=== PATIENT | male | born 1965 | race Caucasian/White ===

== ENCOUNTER 2019-09-03 01:02 | Emergency (ER) | payer OTHER, SELFPAY ==
[2019-09-03 01:05] VITALS: BP 120/80; PULSE 82; RESP 15; TEMP 36.9; O2SAT 98; BMI 27.4
[2019-09-03 01:32] LABS: Add Manual Diff / Slide Review NO; Basophils Absolute Auto 100 /uL (0-100); Basophils Percent Auto 0.7 % (0-2); Eosinophils Absolute Auto 1300 /uL (0-450); Eosinophils Percent Auto 10.3 % (2-4); Hematocrit 43.3 % (41-53); Lymphocytes Absolute Auto 5400 /uL (1100-4500); Lymphocytes Percent Auto 43.9 % (25-40); Mean Corpuscular HGB Conc 34.6 % (30-36); Mean Corpuscular Volume 89.7 fL (80-100); Monocytes Absolute Auto 1000 /uL (0-900); Monocytes Percent Auto 7.9 % (3-14); Neutrophils Absolute Auto 4600 /uL (1500-7000); Neutrophils Percent Auto 37.2 % (50-75); Platelet Count 275 X10^3/uL (150-400); Red Blood Cell Count 4.82 X10^6/uL (4.5-5.9); Red Cell Distribution Width 14.3 % (11.6-14.8); White Blood Cell Count 12.4 X10^3/uL (4.5-11.0)
--- NOTE | 2019-09-03 01:37 | ED_ITS ---
HPI - General Adult General Chief complaint: Syncope Stated complaint: Syncope Time Seen by Provider: 09/03/19 01:20 History of Present Illness HPI narrative: 54-year-old gentleman with no significant medical issues in on no medications states that he has recently moved to the area to help his aging mother. [place] had a couple of drinks along with probably a couple of puffs of marijuana neither of which are standard procedures for him. Apparently he stood up and had a witnessed syncopal episode where he slumped to the floor. He did not hit his head and is not complaining if any acute musculoskeletal pain or injury. He was noted to be relatively hypotensive with the medics 1st arrived and without fluid he has recovered nicely. He has no complaints or concerns at this time. Review of Systems Review of Systems Narrative: Denies ? fever ? cough ? cold ? chills ? chest pain ? dyspnea ? orthopnea ? wheezing ? abdominal pain ? change to bowel or bladder habits ? nausea vomiting ? skin changes ? rashes Patient History Social History Smoking Status: Former smoker Exam Narrative Exam Narrative: General: Healthy appearing, in no acute distress. Amiable but smelling strongly of alcohol. Able to give a complete and coherent history. Well-nourished well-developed HEENT: Moist mucous membranes, normal sclera with reactive pupils, Neck: No JVD, supple Respiratory: Lungs are clear to auscultation, no wheezing no rales no rhonchi. Full and symmetrical air movement Cardiac: Regular rate and rhythm no murmurs no bruits Abdomen: Soft nontender good bowel tones, no flank pain Skin: Warm and dry, no rashes Neurologic: Grossly neurologically intact with no obvious asymmetries or abnormalities Extremities: No trauma, well perfused Psych: Cooperative, appropriate insight and affect Initial Vital Signs Initial Vital Signs: Vital Signs Temperature 98.5 F 09/03/19 01:05 Pulse Rate 82 09/03/19 01:05 Respiratory Rate 15 09/03/19 01:05 Blood Pressure 120/80 09/03/19 01:05 Pulse Oximetry 98 09/03/19 01:05 Course Orders Ordered: ED Orders 09/03/19 01:06 EKG-12 Lead Stat 09/03/19 01:23 Complete Blood Count AUTO DIFF Stat Comprehensive Metabolic Panel Stat Ethanol (ETOH) Stat Troponin & CK Cardiac Panel Stat Discontinued Medications Sodium Chloride (Normal Saline 0.9%) 1,000 mls @ 1,000 mls/hr IV BOLUS ONE Stop: 09/03/19 02:19 Last Admin: 09/03/19 02:31 Dose: 1,000 mls/hr Documented by: LOGAN Vital Signs Vital signs: Vital Signs - 8 hr 09/03/19 01:05 Temperature 98.5 F Pulse Rate 82 Respiratory Rate 15 Blood Pressure 120/80 Pulse Oximetry 98 Medical Decision Making Medical Records Medical records reviewed: Yes I reviewed the patient's medical records. Lab Data Result diagrams: 09/03/19 01:23 09/03/19 01:23 Labs: Lab Results 09/03/19 09/03/19 Range/Units 01:23 01:23 WBC 12.4 H (4.5-11.0) X10^3/uL RBC 4.82 (4.5-5.9) X10^6/uL Hgb 15.0 (13.5-17.5) g/dL Hct 43.3 (41-53) % MCV 89.7 (80-100) fL MCH 31.0 (26-34) PG MCHC 34.6 (30-36) % RDW 14.3 (11.6-14.8) % Plt Count 275 (150-400) X10^3/uL Neut % (Auto) 37.2 L (50-75) % Lymph % (Auto) 43.9 H (25-40) % Cannon % (Auto) 7.9 (3-14) % Eos % (Auto) 10.3 H (2-4) % Baso % (Auto) 0.7 (0-2) % Neut # (Auto) 4600 (5459-7962) /uL Lymph # (Auto) 5400 H (9821-2170) /uL Cannon # (Auto) 1000 H (0-900) /uL Eos # (Auto) 1300 H (0-450) /uL Baso # (Auto) 100 (0-100) /uL Sodium 143 (137-145) mmol/L Potassium 3.6 (3.4-5.1) mmol/L Chloride 104 (98-107) mmol/L Carbon Dioxide 23 (22-32) mmol/L BUN 14 (9-20) mg/dL Creatinine 1.20 (0.66-1.25) mg/dL Estimated GFR > 60.0 (>60) mL/min BUN/Creatinine Ratio 11.7 (6-22) Glucose 127 H (70-100) mg/dL Calcium 10.1 (8.4-10.2) mg/dL Total Bilirubin 0.4 (0.2-1.3) mg/dL AST 30 (17-59) IU/L ALT 22 (<50) IU/L Alkaline Phosphatase 75 (38-126) U/L Total Creatine Kinase 74 (55-170) U/L CK-MB (CK-2) TNP CK-MB (CK-2) Rel Index TNP Troponin I < 0.012 (0.01-0.034) ng/mL Total Protein 8.1 (6.3-8.2) g/dL Albumin 4.8 (3.5-5.0) g/dL Globulin 3.3 (1.7-4.1) g/dL Albumin/Globulin Ratio 1.5 (1.0-2.8) Ethyl Alcohol 268 H ( - 10) mg/dL Alcohol level of 268 ECG Data Attestation: I personally reviewed and interpreted this ECG as follows: Interpretation: Ventricular rate of 83, sinus rhythm. No acute ischemic changes and normal axis. MDM Narrative Medical decision making narrative: Patient states he is feeling much better aft er L of fluid. He is relatively stable in getting back and forth to the bathroom. Labs are reassuring. I suspect that the syncopal episode was related to the alcohol and marijuana use this evening or rather than to a significant cardiac, infectious Disease, or Neurologic catastrophic event. He is working on arranging ride and if a responsible adult can come pick him up he is safe for home discharge Discharge Plan Departure Patient Disposition: Home Clinical Impression: Vasovagal syncope Alcohol intoxication Qualifiers: Complication of substance-induced condition: uncomplicated Qualified Code(s): F10.920 - Alcohol use, unspecified with intoxication, uncomplicated Instructions: DI for Syncope in Adults (Fainting) Activity Restrictions/Additional Instructions: Thank you for letting us evaluate you today. I am glad that you know that the lab work and chest x-ray were all reassuring. As you stated, ?no bad shit today?. I suspect that your blood pressure simply got too low and that is related to the alcohol and marijuana you had this evening. You are already aware of the difficulties you have in mixing these 2 drugs, I would recommend that you try very hard to avoid mixing them in the future. I am glad you are feeling better, I hope the L of fluid that you got in the emergency room helps to avoid much of a hangover tomorrow morning. If you have new symptoms, developed chest pain, shortness of breath, fevers or find things that are hurting tomorrow as use over up that need additional evaluation, please return to the emergency room.
[2019-09-03 01:38] LABS: Alanine Aminotransferase 22 IU/L (<50); Albumin 4.8 g/dL (3.5-5.0); Albumin Globulin Ratio 1.5 (1.0-2.8); Alkaline Phosphatase 75 U/L (38-126); Aspartate Aminotransferase 30 IU/L (17-59); BUN Creatinine Ratio 11.7 (6-22); Bilirubin Total 0.4 mg/dL (0.2-1.3); Blood Urea Nitrogen 14 mg/dL (9-20); Calcium 10.1 mg/dL (8.4-10.2); Carbon Dioxide 23 mmol/L (22-32); Chloride 104 mmol/L (98-107); Creatine Kinase 74 U/L (55-170); Estimated Glomerular Filt Rate > 60.0 mL/min (>60); Ethanol (ETOH) 268 mg/dL; Globulin 3.3 g/dL (1.7-4.1); Glucose 127 mg/dL (70-100); HEMOLYSIS 38 (0-50); Potassium 3.6 mmol/L (3.4-5.1); Sodium 143 mmol/L (137-145); Total Protein 8.1 g/dL (6.3-8.2)
[2019-09-03 01:49] LABS: Troponin I < 0.012 ng/mL (0.01-0.034)
[2019-09-03] MEDS: SODIUM CHLORIDE 0.9% 1,000 ML 1000 ML IV (02:31)
[2019-09-03 05:40] VITALS: BP 109/90; PULSE 88; RESP 14; O2SAT 98
--- NOTE | 2019-10-01 02:38 | PC.NURSE ---
NS stopped at 0330, 1 liter infused.
== END 2019-09-03 05:43 | disposition home or self-care (01) ==
PROVIDERS: Emergency Provider Emergency Medicine
DX: R55 Syncope and collapse (principal); F10.129 Alcohol abuse with intoxication, unspecified; F12.90 Cannabis use, unspecified, uncomplicated; I95.9 Hypotension, unspecified; Y90.8 Blood alcohol level of 240 mg/100 ml or more
CPT/HCPCS: 80053; 80320; 82550; 84484; 85025; 93005; 96360; 99283; 99284